=== PATIENT | female | born 1975 | race Two or more races ===

== ENCOUNTER 2021-08-17 14:18 | Emergency (ER) | payer OTHER ==
[~2021-08-17] VITALS: Ht 157.5 cm; Wt 63.5 kg
[2021-08-17 14:28] VITALS: BP 114/73
[2021-08-17] MEDS ORDERED: AMOX500T86 PO (15:51)
[2021-08-17] MEDS ORDERED: TETANUS-DIPTH-ACEL PERTUSSIS 0.5ML SYR Tdap IM ONE (16:00)
== END 2021-08-17 16:28 | disposition home or self-care (01) ==
LOC: ER 14:18
DX: S51.851A Open bite of right forearm, initial encounter (principal); W50.3XXA Accidental bite by another person, initial encounter; Y93.89 Activity, other specified; Y92.89 Other specified places as the place of occurrence of the external cause; Y99.8 Other external cause status
CPT/HCPCS: 90471; 90715

== ENCOUNTER 2021-08-29 19:37 | Emergency (ER) | payer OTHER ==
[~2021-08-29] VITALS: Ht 157.5 cm; Wt 63.5 kg
[~2021-08-29 19:37] MED LIST: AMOX500T86 PO
[2021-08-30 01:45] VITALS: BP 121/94
[2021-08-30] MEDS ORDERED: DexAMETHasone INJECTION 10 MG in D5W 5% 50 ML IV ONE (02:15)
[2021-08-30] MEDS ORDERED: IBUP600T28 PO (02:23)
[2021-08-30] MEDS ORDERED: OXYM-20 (02:23)
[2021-08-30] MEDS ORDERED: SALI0.6549 (02:23)
== END 2021-08-30 03:11 | disposition left against medical advice (07) ==
LOC: ER 19:46
DX: J02.9 Acute pharyngitis, unspecified (principal); R50.9 Fever, unspecified; Z20.822 Contact with and (suspected) exposure to COVID-19; Z53.21 Procedure and treatment not carried out due to patient leaving prior to being seen by health care provider
CPT/HCPCS: 36415; 87070; 87804; 87880; J1100; J7060